=== PATIENT | male | born 1980 | race Caucasian/White ===

== ENCOUNTER → 2018-12-31 | Outpatient (CLI) | payer SELFPAY ==
[~2018-12-31] MED LIST: LORTAB 5/500 501 TAB PO; NO HOME MEDICATIONS
== END ==
LOC: COL.RAD 07:29
DX: G32.81 Cerebellar ataxia in diseases classified elsewhere (principal)

== ENCOUNTER → 2019-01-27 | Outpatient (CLI) | payer SELFPAY ==
[2019-01-27 17:27] LABS: BASO % 0.5 % (0.0-2.0); EOS # 0.5 (0.0-0.7); EOS % 5.8 % (0-4.0); GRAN # 4.4 (1.4-6.5); GRAN % 56.2 % (42.2-75.2); HEMATOCRIT 42.5 % (42.0-52.0); HEMOGLOBIN 14.7 g/dl (13.5-18.0); LYMPH # 2.1 (1.2-3.4); LYMPH % 27.4 % (20.0-51.0); MEAN CELL VOLUME 84 fl (80.0-100.0); MEAN CORPUSCULAR HEMOGLOBIN 29 pg (27.0-31.0); MEAN CORPUSCULAR HGB CONC 35 g/dl (33.0-37.0); MONO # 0.8 (0.1-0.6); MONO % 9.6 % (1.7-9.3); PLATELET COUNT 222 K/mm3 (130-400); RED BLOOD COUNT 5.08 M/mm3 (4.20-5.60); REDCELL DISTRIBUTION WIDTH-CV 12.6 % (11.5-14.5)
== END ==
LOC: ZCOL.LAB 16:43
DX: R53.83 Other fatigue (principal); R42 Dizziness and giddiness